=== PATIENT | female | born 2000 | race Two or more races ===

== ENCOUNTER 2021-01-14 15:39 | Inpatient (IN) | payer SELFPAY ==
[~2021-01-14] VITALS: Ht 157.5 cm; Wt 49.0 kg
--- NOTE | 2021-01-14 15:50 | NUR ---
ERMD AT BEDSIDE FOR EVALUATION.
[2021-01-14] MEDS ORDERED: SODIUM CHLORIDE FLUSH 10ML SYR IVF ONE (16:00)
[2021-01-14] MEDS ORDERED: SODIUM CHLORIDE 0.9% 1,000ML IVBOLUS ONE (16:00)
[2021-01-14] MEDS ORDERED: ONDANSETRON 2MG/ML, 2ML IVPush ONE (16:00)
[2021-01-14] MEDS ORDERED: MORPHINE SULFATE 4 MG/ML, 1ML IVPush PRN (16:00)
[2021-01-14] MEDS ORDERED: MORPHINE SULFATE 4 MG/ML, 1ML ONE (16:05)
[2021-01-14] MEDS ORDERED: ONDANSETRON 2MG/ML, 2ML ONE ×3 (16:05→21:39)
[2021-01-14 16:08] LABS: BASOPHILS % (AUTO) 0 % (0-1); EOSINOPHILS % (AUTO) 0 % (1-7); LYMPHOCYTES % (AUTO) 9 % (22-44); MEAN CORPUSCULAR HEMOGLOBIN 33.2 pg (27.0-34.8); MEAN CORPUSCULAR HGB CONC 34.8 g/dL (32.4-35.8); MONOCYTES % (AUTO) 7 % (2-9); NEUTROPHILS % (AUTO) 83 % (42-75); PLATELET COUNT 184 x10^3/uL (130-400); RED BLOOD COUNT 4.55 x10^6/uL (3.82-5.3); RED CELL DISTRIBUTION WIDTH 12.3 % (9.6-15.2)
--- NOTE | 2021-01-14 16:15 | NUR ---
18 GAUGE IV STARTED RIGHT AC, PATIENT MEDICATED PER eMAR, NADN, VSS, CALL LIGHT WITHIN REACH, NO FURTHER NEEDS AT THIS TIME.
[2021-01-14 16:17] LABS: ALBUMIN 3.9 g/dL (3.4-5.0); ANION GAP 7 mmol/L (5-15); CALCIUM 8.6 mg/dL (8.5-10.1); CHLORIDE 106 mmol/L (98-107); CREATININE 0.74 mg/dL (0.55-1.02)
--- NOTE | 2021-01-14 16:25 | NUR ---
EDUCATED PATIENT ON NEED FOR URINE SAMPLE, PATIENT UNABLE TO GO AT THIS TIME, WILL TRY AFTER FLUIDS RUN.
--- NOTE | 2021-01-14 16:44 | NUR ---
URINE SAMPLE COLLECTED AND SENT TO LAB. US TECH AT BEDSIDE.
[2021-01-14 17:17] LABS: MICROSCOPIC AUTO
[2021-01-14 18:07] VITALS: BP 117/75
--- NOTE | 2021-01-14 18:07 | NUR ---
PATIENT RESTING IN GURNEY, CONNECTED TO MONITORS, VSS, NADN, BOYFRIEND AT BEDSIDE, CALL LIGHT WITHIN REACH, NO FURTHER NEEDS AT THIS TIME. PATIENT UP FOR RECHECK.
--- NOTE | 2021-01-14 18:52 | NUR ---
REPORT TO SAMEER AIKEN IN OR.
[2021-01-14] MEDS ORDERED: FENTANYL PF 250 MCG/5ML ONE (18:56)
[2021-01-14] MEDS ORDERED: MIDAZOLAM 1 MG/ML, 2ML ONE (18:56)
--- NOTE | 2021-01-14 19:01 | NUR ---
report from Osiel ESTRELLA, rapid covid swab collected and walked to lab.
[2021-01-14] MEDS ORDERED: NEOSTIGMINE 1 MG/ML, 10ML ONE ×2 (19:03→21:39)
[2021-01-14] MEDS ORDERED: ROCURONIUM 10MG/ML,5ML ONE ×2 (19:03→21:39)
[2021-01-14] MEDS ORDERED: PROPOFOL 10 MG/ML, 20ML ONE ×2 (19:03→21:39)
[2021-01-14] MEDS ORDERED: CEFAZOLIN 1,000 MG ONE ×2 (19:03→21:39)
[2021-01-14] MEDS ORDERED: GLYCOPYRROLATE 0.2MG/1ML, 5ML ONE ×2 (19:03→21:39)
[2021-01-14] MEDS ORDERED: DEXAMETHASONE 4 MG/ML, 1ML ONE ×2 (19:03→21:39)
[2021-01-14] MEDS ORDERED: SUCCINYLCHOLINE 20 MG/ML, 10ML ONE (19:03)
--- NOTE | 2021-01-14 20:16 | NUR ---
ATTEMPT #1 FOR REPORT TO FLOOR RN, RN TO CALL BACK. WAITING FOR OB TO SEE PATIENT BEFORE HEADING TO SURGERY. PT UPDATED ON POC
--- NOTE | 2021-01-14 20:27 | NUR ---
REPORT GIVEN TO HARIS ESTRELLA
[2021-01-14] MEDS ORDERED: LIDOCAINE-MPF 2% ,5ML ONE (20:41)
--- NOTE | 2021-01-14 20:48 | NUR ---
TP RN: WORKING AT BEDSIDE FOR PELVIC.
[2021-01-14] MEDS ORDERED: BUPIVACAINE/PF 0.25% ONE (20:51)
[2021-01-14] MEDS ORDERED: BUPIVACAINE/PF 0.25% IM ONE (20:59)
[2021-01-14] MEDS ORDERED: OXYcodone 5 MG/5 ML ORAL.SOL UDC PO PRN (21:00)
[2021-01-14] MEDS ORDERED: HYDROmorphone 1 MG/ML, 1ML INJ IVPush PRN (21:00)
[2021-01-14] MEDS ORDERED: PROMETHAZINE 25 MG/ML, 1ML IVPush PRN (21:00)
[2021-01-14] MEDS ORDERED: LORazepam 2 MG/ML, 1ML IVPush PRN (21:00)
[2021-01-14] MEDS ORDERED: ACETAMINOPHEN 325 MG TABLET PO PRN (21:00)
[2021-01-14] MEDS ORDERED: METHOCARBAMOL 1,000 MG in DEXTROSE 5% 100 ML IV PRN (21:00)
[2021-01-14] MEDS ORDERED: FENTANYL PF 100 MCG/2ML IV PRN (21:00)
[2021-01-14] MEDS ORDERED: MEPERIDINE/PF 25MG/0.5ML IVPush PRN (21:00)
[2021-01-14] MEDS ORDERED: KETOROLAC 30 MG/1 ML ONE (21:05)
[2021-01-14] MEDS ORDERED: OXYC1TAB14 PO ×3 (22:06→22:10)
[2021-01-14] MEDS ORDERED: IBUP-1222 PO (22:06)
[2021-01-14] MEDS ORDERED: ONDA4TAB7 PO (22:06)
== END 2021-01-15 00:09 | disposition home or self-care (01) | DRG 819 ==
LOC: ED 18:03 → EDIP 19:09 → 4NE 22:53
PROVIDERS: ADMIT Obstetrics & Gynecology; ATTEND Obstetrics & Gynecology
PROC: 10T24ZZ Resection of Products of Conception, Ectopic, Percutaneous Endoscopic Approach (ICD-10-PCS; 2021-01-14)
PROC: 0UT54ZZ Resection of Right Fallopian Tube, Percutaneous Endoscopic Approach (ICD-10-PCS; principal; 2021-01-14 21:30)
DX: O00.101 Right tubal pregnancy without intrauterine pregnancy (principal); Z20.822 Contact with and (suspected) exposure to COVID-19
CPT/HCPCS: 36415; 96361; 96374; 96375; 99285; J3490; 76830; 80048; 81001; 82040; 84702; 85025; 86850; 86900; 86901; 87635; 88305; G0378; J0690; J1100; J1885; J2250; J2405; J2704; J2710; J3010; J0330; J2270; J7030